=== PATIENT | female | born 1935 | race Two or more races ===

== ENCOUNTER 2020-08-23 09:35 | Outpatient (CLI) | payer OTHER | END 2020-08-23 13:00 | disposition home or self-care (01) | LOC: OFIC 805 09:35 | PROVIDERS: ATTEND Otolaryngology Otology & Neurotology | DX: K21.9 Gastro-esophageal reflux disease without esophagitis (principal); J02.8 Acute pharyngitis due to other specified organisms; H61.21 Impacted cerumen, right ear; H92.01 Otalgia, right ear; H73.21 Unspecified myringitis, right ear ==

== ENCOUNTER 2021-01-03 13:22 | Outpatient (CLI) | payer OTHER | END 2021-01-03 14:11 | disposition home or self-care (01) | LOC: OFIC 805 13:22 | PROVIDERS: ATTEND Otolaryngology Otology & Neurotology | DX: K21.9 Gastro-esophageal reflux disease without esophagitis (principal); H91.13 Presbycusis, bilateral ==